=== PATIENT | female | born 1980 | race Caucasian/White ===

== ENCOUNTER 2017-11-19 02:06 | Inpatient (IN) | payer BC ==
[2017-11-19] MEDS ORDERED: Penicillin G Potassium 5 MILLUNITS in Sodium Chloride 0.9% 100 ML IV STA (02:45)
[2017-11-19] MEDS ORDERED: Lactated Ringers 1,000 ML IV SCH ×2 (02:45→08:15)
[2017-11-19] MEDS: Penicillin G Potassium 2.5 MILLUNITS in Sodium Chloride 0.9% 100 ML IV SCH ×4 (06:54→23:01)
[2017-11-19] MEDS ORDERED: Lidocaine 1% 30 ML SDV INJECT PRN (08:01)
[2017-11-19] MEDS ORDERED: Misoprostol 400 MCG (4 X 100 MCG TAB) RECTAL PRN (08:01)
[2017-11-19] MEDS ORDERED: Sodium Chloride 0.9% 10 ML Syringe FLUSH PRN (08:01)
[2017-11-19] MEDS ORDERED: Methylergonovine 0.2 MG/1 ML Amp IM PRN (08:01)
[2017-11-19] MEDS ORDERED: Lactated Ringers 500 ML IV ONE (08:01)
[2017-11-19] MEDS ORDERED: Carboprost Tromethamine 250 MCG/1 ML Amp IM PRN (08:01)
[2017-11-19] MEDS ORDERED: fentaNYL 100 MCG/2 ML SDV IVPUSH PRN (08:01)
[2017-11-19] MEDS ORDERED: Ondansetron 4 MG/2 ML SDV IV PRN (08:01)
[2017-11-19] MEDS ORDERED: Nalbuphine 20 MG/1 ML Amp IVPUSH PRN (08:01)
[2017-11-19] MEDS ORDERED: hydrOXYzine HCl 25 MG Tab PO PRN (08:04)
--- NOTE | 2017-11-19 08:24 | PCM.LDHP ---
L&D History of Present Illness - General Date of Service: 11/19/17 Admit Problem/Dx: Patient Status Order with Admit Dx/Problem 11/19/17 08:01 Patient Status [ADT] Routine Admission Diagnosis/Problem Admission Diagnosis/Problem Active labor Source of Information: Patient History Limitations: Reports: No Limitations - History of Present Illness Introduction:: 37-year-old at 38w3d presented to L&D last night with increased contractions since mid-afternoon. She has had increased [place] over the past couple days but her contractions became more regular yesterday. She presented to L&D around 0200 this morning with contractions 3-5 minutes apart. Penicillin was started for GBS prophylaxis and she was observed initially. Cervix changed from 3 to 4+ cm so the decision was made to proceed with AROM after the 2nd dose of PCN was given. Moderate meconium was noted. Baby has been active. Patient has also noted a good amount of bloody show. No new headaches or vision changes. - Related Data Allergies/Adverse Reactions: Allergies Allergy/AdvReac Type Severity Reaction Status Date / Time No Known Allergies Allergy Verified 11/19/17 03:05 Home Medications: Home Meds Docusate Sodium [Colace] 100 mg PO BID 10/31/17 [History] Famotidine [Pepcid] 10 mg PO DAILY 10/31/17 [History] Pnv No.122/Iron/Folic Acid [ Multi Tablet] 1 tab PO DAILY 10/31/17 [ History] Past Medical History Gastrointestinal History: Reports: None HOUSE PARENT History: Reports: , Spontaneous - Infectious Disease History Infectious Disease History: Reports: Chicken Pox - Past Surgical History HEENT Surgical History: Reports: Oral Surgery, Other (See Below) Other HEENT Surgeries/Procedures: facial cosmetic surgery GI Surgical History: Reports: Appendectomy Social & Family History - Family History Family Medical History: Noncontributory - Tobacco Use Smoking Status *Q: Never Smoker Second Hand Smoke Exposure: No - Caffeine Use Caffeine Use: Reports: None - Recreational Drug Use Recreational Drug Use: No H&P Review of Systems - Review of Systems: Review Of Systems: See Below General: Reports: No Symptoms HEENT: Reports: No Symptoms Pulmonary: Reports: No Symptoms Cardiovascular: Reports: No Symptoms Genitourinary: Reports: No Symptoms Musculoskeletal: Reports: No Symptoms Skin: Reports: No Symptoms L&D Exam - Exam Exam: See Below - Vital Signs Vital Signs: Last Vital Signs Temp 36.7 C 11/19/17 04:00 Pulse 82 11/19/17 04:00 Resp 16 11/19/17 04:00 BP 95/63 11/19/17 04:00 Pulse Ox Weight: 65.317 kg - OB Specific Contraction Duration (sec): 80 Contraction Frequency (min): 4-4.5 Contraction Intensity: Mild to Moderate Movement: Active Heart Tones: Present Heart Tones per Min: 140 Heart Rate (FHR) Variability: Moderate (6-25 bmp) Presentation: Vertex - Fisher Score Fisher Score Cervix Position: Midposition Fisher Score Consistency: Soft Fisher Score Effacement: >80% Fisher Score Dilation: 3-4 cm Fisher Score 's Station: -1 ,0 Fisher Score Total: 10 - Exam General: Alert, Oriented Lungs: Clear to Auscultation, Normal Respiratory Effort Cardiovascular: Regular Rate, Regular Rhythm Genitourinary: Normal external exam Extremities: No Pedal Edema Skin: Warm, Dry, Intact - Patient Data Lab Results Last 24 hrs: Laboratory Results - last 24 hr 11/19/17 Range/Units 02:25 WBC 13.7 H (5.0-10.0) 10^3/uL RBC 3.82 L (4.2-5.4) 10^6/uL Hgb 12.2 (12.0-16.0) g/dL Hct 35.5 L (37.0-47.0) % MCV 92.9 (80-100) fL MCH 31.9 (27.0-34.0) pg MCHC 34.4 (33.0-35.0) g/dL Plt Count 160 (150-450) 10^3/uL Result Diagrams: 11/19/17 02:25 - Problem List (1) GBS (group B Streptococcus carrier), +RV culture, currently SNOMED Code(s): 6335513024516, 6976200258830 ICD Code: O99.820 - STREPTOCOCCUS B CARRIER STATE COMPLICATING Status: Acute Current Visit: Yes (2) care in third trimester SNOMED Code(s): 881809702, 66422707, 216133645, 801777792 ICD Code: Z34.93 - ENCNTR FOR SUPRVSN OF NORMAL PREG, UNSP, THIRD TRIMESTER Status: Acute Current Visit: Yes (3) AMA (advanced maternal age) multigravida 35+ SNOMED Code(s): 794278517 ICD Code: O09.529 - SUPERVISION OF ELDERLY MULTIGRAVIDA, UNSPECIFIED TRIMESTER Status: Acute Current Visit: Yes (4) Family history of genetic disease SNOMED Code(s): 906473741 ICD Code: Z84.89 - FAMILY HISTORY OF OTHER SPECIFIED CONDITIONS Status: Acute Current Visit: Yes Problem List Initiated/Reviewed/Updated: Yes Orders Last 24hrs: Active Orders 24 hr Category Date Time Status Patient Status [ADT] Routine ADT 11/19/17 08:01 Active Communication Order [RC] ASDIRECTED Care 11/19/17 08:01 Active Heart Tones [RC] PER UNIT ROUTINE Care 11/19/17 08:01 Active Notify Provider Vital Signs OB [RC] ASDIRECTED Care 11/19/17 08:01 Active Notify Provider [RC] PRN Care 11/19/17 08:01 Active Pump Management, Intrathecal [RC] ASDIRECTED Care 11/19/17 08:01 Active Up ad Norma [RC] ASDIRECTED Care 11/19/17 08:01 Active Vital Signs [RC] PER UNIT ROUTINE Care 11/19/17 08:01 Active Clear Liquid Diet [DIET] Diet 11/19/17 Lunch Active Acetaminophen [Tylenol] Med 11/19/17 08:01 Active 650 mg PO Q4H PRN Carboprost Tromethamine [Hemabate DS] Med 11/19/17 08:01 Active 250 mcg IM ASDIRECTED PRN Lactated Ringers [Ringers, Lactated] 1,000 ml Med 11/19/17 02:45 Active IV ASDIRECTED Lactated Ringers [Ringers, Lactated] 1,000 ml Med 11/19/17 08:15 Active IV ASDIRECTED Lactated Ringers [Ringers, Lactated] 500 ml Med 11/19/17 08:01 Active IV .BOLUS Lidocaine 1% [Xylocaine-MPF 1%] Med 11/19/17 08:01 Active 10 ml INJECT ASDIRECTED PRN Methylergonovine [Methergine] Med 11/19/17 08:01 Active 0.2 mg IM ASDIRECTED PRN Misoprostol [Cytotec] Med 11/19/17 08:01 Active 800 mcg RECTAL ASDIRECTED PRN Nalbuphine [Nubain] Med 11/19/17 08:01 Ordered 10 mg IVPUSH Q3H PRN Ondansetron [Zofran] Med 11/19/17 08:01 Ordered 4 mg IV Q4H PRN Penicillin G Potassium [Pfizerpen] 2.5 millunits Med 11/19/17 07:00 Active Sodium Chloride 0.9% [Normal Saline] 100 ml IV Q4H Sodium Chloride 0.9% [Saline Flush] Med 11/19/17 08:01 Active 10 ml FLUSH ASDIRECTED PRN fentaNYL [Sublimaze] Med 11/19/17 08:01 Ordered 50 mcg IVPUSH Q1H PRN hydrOXYzine HCl [Atarax] Med 11/19/17 08:04 Ordered 25 mg PO Q6H PRN Saline Lock Insert [OM.PC] Routine Oth 11/19/17 08:01 Ordered Resuscitation Status Routine Resus Stat 11/19/17 08:01 Ordered Medication Orders Acetaminophen (Tylenol) 650 mg PO Q4H PRN PRN Reason: Pain (Mild 1-3) and fever Carboprost Tromethamine (Hemabate Ds) 250 mcg IM ASDIRECTED PRN PRN Reason: HEMORRHAGE Fentanyl (Sublimaze) 50 mcg IVPUSH Q1H PRN PRN Reason: Pain (moderate 4-6) Hydroxyzine HCl (Atarax) 25 mg PO Q6H PRN PRN Reason: Pain Lactated Ringer's (Ringers, Lactated) 1,000 mls @ 125 mls/hr IV ASDIRECTED [facility] Last Admin: 11/19/17 02:22 Dose: 125 mls/hr Penicillin G Potassium 2.5 (millunits/ Sodium Chloride) 100 mls @ 200 mls/hr IV Q4H [facility] Last Admin: 11/19/17 06:54 Dose: 200 mls/hr Lactated Ringer's (Ringers, Lactated) 500 mls @ 999 mls/hr IV .BOLUS ONE Stop: 11/19/17 08:31 Lactated Ringer's (Ringers, Lactated) 1,000 mls @ 125 mls/hr IV ASDIRECTED [facility] Lidocaine HCl (Xylocaine-Mpf 1%) 10 ml INJECT ASDIRECTED PRN PRN Reason: Perineal Repair Methylergonovine Maleate (Methergine) 0.2 mg IM ASDIRECTED PRN PRN Reason: Hemorrhage Misoprostol (Cytotec) 800 mcg RECTAL ASDIRECTED PRN PRN Reason: Hemorrhage Nalbuphine HCl (Nubain) 10 mg IVPUSH Q3H PRN PRN Reason: Pain (moderate 4-6) Ondansetron HCl (Zofran) 4 mg IV Q4H PRN PRN Reason: Nausea/Vomiting Sodium Chloride (Saline Flush) 10 ml FLUSH ASDIRECTED PRN PRN Reason: Keep Vein Open Assessment/Plan Comment:: 1. Initiate routine intrapartum cares 2. Continue PCN for GBS positive status 3. Expectant management. Anticipate Estelita Landon MD
[2017-11-19] MEDS: Oxytocin/Normal Saline 30 UNIT/500 ML BAG IV SCH ×2 (11:17→12:30)
[2017-11-19] MEDS ORDERED: Oxytocin 10 Units/1 ML SDV IM PRN (11:26)
[2017-11-19] MEDS ORDERED: Simethicone 80 MG Tab.Chew PO PRN (11:26)
[2017-11-19] MEDS ORDERED: Benzocaine/Menthol 20%-0.5% Spray 56 GM Canister TOP PRN (11:26)
--- NOTE | 2017-11-19 11:33 | PCM.DEL ---
<Ena Westbrook - Last Filed: 11/19/17 12:10> L & D Note - General Info Date of Service: 11/19/17 Mother's Due Date: 11/30/17 - Delivery Note Labor: Spontaneous Delivery Outcome: Livebirth Delivery Method: Spontaneous Vaginal Delivery-Single Delivery Mode: Spontaneous Presentation: Vertex Anesthesia Type: None Amniotic Fluid Description: Meconium Stained Episiotomy Type: None Laceration: None Placenta: Intact, Spontaneous, Clot (two large clots after placenta delivery ) Cord: 3 Vessels Resuscitation Needed: No [place]: Bulb Syringe Score 1 min: 8 Score 5 min: 9 Second Stage Interventions: Reports: Pushing Effectively, Pushing, McRobert's Position Delivery Comments (Free Text/Narrative):: 35-year-old now [id number] presented to L&D at 38w3d. She presented to L&D around 0200 this morning with contractions 3-5 minutes apart. Penicillin was started for GBS prophylaxis. Cervix changed from 3 to 4+ cm. After 2nd dose of Penicillin, AROM was performed. Moderate meconium was noted. She progressed to 100% effaced and completely dilated at 1040. Patient pushed four times and delivered a viable male infant at 1049 with Apgars of 8 and 9 at 1 and 5 minutes respectively. Baby was urinating and covered in moderate amount of meconium at delivery. Baby was placed on mother's stomach while bulb suction was being performed. When the cord stopped pulsing, it was clamped x2 and cut by patient's / Father of baby. Cord blood was collected. Perineum was inspected and appeared to be intact. The placenta delivered at 1117, immediately followed by two large blood clots. Placenta was inspected and appeared to be intact. No obvious abnormalities were observed. Perineum was again inspected and was intact. Uterus was noted to be firm. Bleeding was noted to be appropriate. Patient tolerated the procedure well, and there were no immediate complications. - Patient Data Vitals - Most Recent: Last Vital Signs Temp 98.1 F 11/19/17 04:00 Pulse 82 11/19/17 07:00 Resp 16 11/19/17 07:00 BP 123/66 11/19/17 07:00 Pulse Ox Weight - Most Recent: 65.317 kg I&O - Last 24 Hours: Intake & Output 11/18/17 11/19/17 11/19/17 22:59 06:59 14:59 Intake Total 100 Balance 100 Lab Results Last 24 Hours: Laboratory Results - last 24 hr 11/19/17 Range/Units 02:25 WBC 13.7 H (5.0-10.0) 10^3/uL RBC 3.82 L (4.2-5.4) 10^6/uL Hgb 12.2 (12.0-16.0) g/dL Hct 35.5 L (37.0-47.0) % MCV 92.9 (80-100) fL MCH 31.9 (27.0-34.0) pg MCHC 34.4 (33.0-35.0) g/dL Plt Count 160 (150-450) 10^3/uL Med Orders - Current: Current Medications Acetaminophen (Tylenol) 650 mg PO Q4H PRN PRN Reason: Pain (Mild 1-3) and fever Benzocaine/Menthol (Dermoplast Pain Relief [place]) 0 gm TOP Q4H PRN PRN Reason: Perineal comfort measures Carboprost Tromethamine (Hemabate Ds) 250 mcg IM ASDIRECTED PRN PRN Reason: HEMORRHAGE Docusate Sodium (Colace) 100 mg PO BID PRN PRN Reason: Constipation Hydroxyzine HCl (Atarax) 25 mg PO Q6H PRN PRN Reason: Pain Lactated Ringer's (Ringers, Lactated) 1,000 mls @ 125 mls/hr IV ASDIRECTED [facility] Last Admin: 11/19/17 02:22 Dose: 125 mls/hr Penicillin G Potassium 2.5 (millunits/ Sodium Chloride) 100 mls @ 200 mls/hr IV Q4H [facility] Last Admin: 11/19/17 06:54 Dose: 200 mls/hr Ibuprofen (Motrin) 800 mg PO Q8H PRN PRN Reason: Mild Pain or Fever Methylergonovine Maleate (Methergine) 0.2 mg IM ASDIRECTED PRN PRN Reason: Hemorrhage Misoprostol (Cytotec) 800 mcg RECTAL ASDIRECTED PRN PRN Reason: Hemorrhage Ondansetron HCl (Zofran) 4 mg IV Q4H PRN PRN Reason: Nausea/Vomiting Oxytocin (Pitocin) 10 unit IM ONETIME PRN PRN Reason: Bleeding Prenat Multivit/[place]/Iron/Folic Ac ( Plus Iron) 1 each PO DAILY [facility] [place] Simethicone (Simethicone) 80 mg PO Q4H PRN PRN Reason: Gas Sodium Chloride (Saline Flush) 10 ml FLUSH ASDIRECTED PRN PRN Reason: Keep Vein Open Discontinued Medications Fentanyl (Sublimaze) 50 mcg IVPUSH Q1H PRN PRN Reason: Pain (moderate 4-6) Penicillin G Potassium 5 (millunits/ Sodium Chloride) 100 mls @ 200 mls/hr IV ONETIME STA Stop: 11/19/17 03:14 Last Admin: 11/19/17 03:07 Dose: 200 mls/hr Lactated Ringer's (Ringers, Lactated) 500 mls @ 999 mls/hr IV .BOLUS ONE Stop: 11/19/17 08:31 Lactated Ringer's (Ringers, Lactated) 1,000 mls @ 125 mls/hr IV ASDIRECTED [facility] Lidocaine HCl (Xylocaine-Mpf 1%) 10 ml INJECT ASDIRECTED PRN PRN Reason: Perineal Repair Nalbuphine HCl (Nubain) 10 mg IVPUSH Q3H PRN PRN Reason: Pain (moderate 4-6) - Problem List & Annotations (1) Active labour SNOMED Code(s): 57932775 Code(s): EWZ3856 - Status: Acute Current Visit: Yes - Problem List Review Problem List Initiated/Reviewed/Updated: Yes - Assessment Assessment:: 37-year-old Spontaneous vaginal delivery of viable male at 38w3d gestational age. No lacerations or tears of perineal body or vaginal canal. Intact placenta delivered with three cord vessel. - Plan Plan:: 1. Initiate routine orders 2. Plans to breastfeed 3. Anticipate discharge 11/20/17 <Estelita Landon - Last Filed: 11/19/17 15:18> - Patient Data Vitals - Most Recent: Last Vital Signs Temp 36.8 C 11/19/17 09:15 Pulse 93 11/19/17 09:45 Resp 16 11/19/17 09:45 BP 112/76 11/19/17 09:45 Pulse Ox I&O - Last 24 Hours: Intake & Output 11/19/17 11/19/17 11/19/17 06:59 14:59 22:59 Intake Total 100 Balance 100 Lab Results Last 24 Hours: Laboratory Results - last 24 hr 11/19/17 Range/Units 02:25 WBC 13.7 H (5.0-10.0) 10^3/uL RBC 3.82 L (4.2-5.4) 10^6/uL Hgb 12.2 (12.0-16.0) g/dL Hct 35.5 L (37.0-47.0) % MCV 92.9 (80-100) fL MCH 31.9 (27.0-34.0) pg MCHC 34.4 (33.0-35.0) g/dL Plt Count 160 (150-450) 10^3/uL Med Orders - Current: Current Medications Acetaminophen (Tylenol) 650 mg PO Q4H PRN PRN Reason: Pain (Mild 1-3) and fever Benzocaine/Menthol (Dermoplast Pain Relief [place]) 0 gm TOP Q4H PRN PRN Reason: Perineal comfort measures Carboprost Tromethamine (Hemabate Ds) 250 mcg IM ASDIRECTED PRN PRN Reason: HEMORRHAGE Docusate Sodium (Colace) 100 mg PO BID PRN PRN Reason: Constipation Hydroxyzine HCl (Atarax) 25 mg PO Q6H PRN PRN Reason: Pain Lactated Ringer's (Ringers, Lactated) 1,000 mls @ 125 mls/hr IV ASDIRECTED [facility] Last Admin: 11/19/17 02:22 Dose: 125 mls/hr Penicillin G Potassium 2.5 (millunits/ Sodium Chloride) 100 mls @ 200 mls/hr IV Q4H [facility] Last Admin: 11/19/17 11:00 Dose: Not Given Oxytocin/Sodium Chloride (Pitocin In Ns 30 Unit/500 Ml) 30 unit in 500 mls @ 500 mls/hr IV TITRATE [facility]; 500 MUNITS/MIN PRN Reason: Protocol Last Admin: 11/19/17 11:17 Dose: 999 munits/min, 999 mls/hr Ibuprofen (Motrin) 800 mg PO Q8H PRN PRN Reason: Mild Pain or Fever Last Admin: 11/19/17 12:44 Dose: 800 mg Methylergonovine Maleate (Methergine) 0.2 mg IM ASDIRECTED PRN PRN Reason: Hemorrhage Misoprostol (Cytotec) 800 mcg RECTAL ASDIRECTED PRN PRN Reason: Hemorrhage Ondansetron HCl (Zofran) 4 mg IV Q4H PRN PRN Reason: Nausea/Vomiting Oxytocin (Pitocin) 10 unit IM ONETIME PRN PRN Reason: Bleeding Prenat Multivit/[place]/Iron/Folic Ac ( Plus Iron) 1 each PO DAILY [facility] Simethicone (Simethicone) 80 mg PO Q4H PRN PRN Reason: Gas Sodium Chloride (Saline Flush) 10 ml FLUSH ASDIRECTED PRN PRN Reason: Keep Vein Open Discontinued Medications Fentanyl (Sublimaze) 50 mcg IVPUSH Q1H PRN PRN Reason: Pain (moderate 4-6) Penicillin G Potassium 5 (millunits/ Sodium Chloride) 100 mls @ 200 mls/hr IV ONETIME STA Stop: 11/19/17 03:14 Last Admin: 11/19/17 03:07 Dose: 200 mls/hr Lactated Ringer's (Ringers, Lactated) 500 mls @ 999 mls/hr IV .BOLUS ONE Stop: 11/19/17 08:31 Lactated Ringer's (Ringers, Lactated) 1,000 mls @ 125 mls/hr IV ASDIRECTED [facility] Lidocaine HCl (Xylocaine-Mpf 1%) 10 ml INJECT ASDIRECTED PRN PRN Reason: Perineal Repair Nalbuphine HCl (Nubain) 10 mg IVPUSH Q3H PRN PRN Reason: Pain (moderate 4-6) - Problem List & Annotations (1) GBS (group B Streptococcus carrier), +RV culture, currently SNOMED Code(s): 3901565604862, 6934057095729 Code(s): O99.820 - STREPTOCOCCUS B CARRIER STATE COMPLICATING Status: Acute Current Visit: Yes (2) care in third trimester SNOMED Code(s): 110912735, 28233506, 133423919, 213869785 Code(s): Z34.93 - ENCNTR FOR SUPRVSN OF NORMAL PREG, UNSP, THIRD TRIMESTER Status: Acute Current Visit: Yes (3) AMA (advanced maternal age) multigravida 35+ SNOMED Code(s): 298820047 Code(s): O09.529 - SUPERVISION OF ELDERLY MULTIGRAVIDA, UNSPECIFIED TRIMESTER Status: Acute Current Visit: Yes (4) Family history of genetic disease SNOMED Code(s): 715328441 Code(s): Z84.89 - FAMILY HISTORY OF OTHER SPECIFIED CONDITIONS Status: Acute Current Visit: Yes - My Orders Last 24 Hours: My Active Orders 11/19/17 02:45 Lactated Ringers [Ringers, Lactated] 1,000 ml IV ASDIRECTED 11/19/17 07:00 Penicillin G Potassium [Pfizerpen] 2.5 millunits Sodium Chloride 0.9% [Normal Saline] 100 ml IV Q4H 11/19/17 08:01 Patient Status [ADT] Routine Heart Tones [RC] PER UNIT ROUTINE Notify Provider Vital Signs OB [RC] ASDIRECTED Pump Management, Intrathecal [RC] ASDIRECTED Up ad Norma [RC] ASDIRECTED Acetaminophen [Tylenol] 650 mg PO Q4H PRN Carboprost Tromethamine [Hemabate DS] 250 mcg IM ASDIRECTED PRN Methylergonovine [Methergine] 0.2 mg IM ASDIRECTED PRN Misoprostol [Cytotec] 800 mcg RECTAL ASDIRECTED PRN Ondansetron [Zofran] 4 mg IV Q4H PRN Sodium Chloride 0.9% [Saline Flush] 10 ml FLUSH ASDIRECTED PRN Saline Lock Insert [OM.PC] Routine Resuscitation Status Routine 11/19/17 08:04 hydrOXYzine HCl [Atarax] 25 mg PO Q6H PRN 11/19/17 11:26 Vital Signs [RC] PFP Benzocaine/Menthol [Dermoplast Pain Relief [place]] See Dose Instructions TOP Q4H PRN Docusate Sodium [Colace] 100 mg PO BID PRN Ibuprofen [Motrin] 800 mg PO Q8H PRN Oxytocin [Pitocin] 10 unit IM ONETIME PRN Simethicone 80 mg PO Q4H PRN Assess Lochia [WOMSER] Per Unit Routine Assess Uterine Involution [WOMSER] Per Unit Routine Breast Pump [WOMSER] Per Unit Routine Ice Therapy [OM.PC] Per Unit Routine Perineal Care [OM.PC] Per Unit Routine Saline Lock Insert [OM.PC] Urgent Sitz Bath [OM.PC] Per Unit Routine 11/19/17 Lunch Regular Diet [DIET] 11/20/17 09:00 Vit with Ca/FA/Iron [ Plus Iron] 1 each PO DAILY - Plan Plan:: Agree with student assessment and plan. I was present for the entire delivery. Procedure was reviewed by me, and plan was discussed with me. Dr. Currie likely to resume care tomorrow. Estelita Landon MD
[2017-11-19] MEDS: Ibuprofen 800 MG Tab PO PRN ×2 (12:44→21:17)
[2017-11-19] MEDS: Acetaminophen 325 MG Tab PO PRN (15:37)
[2017-11-19] MEDS: Docusate Sodium 100 MG Cap PO PRN (21:17)
[2017-11-20] MEDS: Acetaminophen 325 MG Tab PO PRN ×3 (03:00→17:06)
[2017-11-20] MEDS: Penicillin G Potassium 2.5 MILLUNITS in Sodium Chloride 0.9% 100 ML IV SCH (03:24)
[2017-11-20] MEDS: Ibuprofen 800 MG Tab PO PRN ×2 (05:07→17:05)
--- NOTE | 2017-11-20 08:56 | PCM.PNPP ---
- General Info Date of Service: 11/20/17 Admission Dx/Problem (Free Text): Labor, at 38w 3d Functional Status: Reports: Pain Controlled, Tolerating Diet, Ambulating, Urinating - Review of Systems General: Reports: No Symptoms HEENT: Reports: No Symptoms Pulmonary: Reports: No Symptoms Cardiovascular: Reports: No Symptoms Gastrointestinal: Reports: No Symptoms Genitourinary: Reports: No Symptoms Musculoskeletal: Reports: No Symptoms Skin: Reports: No Symptoms Neurological: Reports: No Symptoms Psychiatric: Reports: No Symptoms - General Info Date of Service: 11/20/17 - Patient Data Vital Signs - Most Recent: Last Vital Signs Temp 97.9 F 11/19/17 20:00 Pulse 81 11/19/17 20:00 Resp 16 11/19/17 20:00 BP 101/54 L 11/19/17 20:00 Pulse Ox Weight - Most Recent: 144 lb Med Orders - Current: Current Medications Acetaminophen (Tylenol) 650 mg PO Q4H PRN PRN Reason: Pain (Mild 1-3) and fever Last Admin: 11/20/17 03:00 Dose: 650 mg Benzocaine/Menthol (Dermoplast Pain Relief [place]) 0 gm TOP Q4H PRN PRN Reason: Perineal comfort measures Last Admin: 11/19/17 15:36 Dose: 1 spray Carboprost Tromethamine (Hemabate Ds) 250 mcg IM ASDIRECTED PRN PRN Reason: HEMORRHAGE Docusate Sodium (Colace) 100 mg PO BID PRN PRN Reason: Constipation Last Admin: 11/19/17 21:17 Dose: 100 mg Lactated Ringer's (Ringers, Lactated) 1,000 mls @ 125 mls/hr IV ASDIRECTED [facility] Last Admin: 11/19/17 02:22 Dose: 125 mls/hr Ibuprofen (Motrin) 800 mg PO Q8H PRN PRN Reason: Mild Pain or Fever Last Admin: 11/20/17 05:07 Dose: 800 mg Methylergonovine Maleate (Methergine) 0.2 mg IM ASDIRECTED PRN PRN Reason: Hemorrhage Misoprostol (Cytotec) 800 mcg RECTAL ASDIRECTED PRN PRN Reason: Hemorrhage Ondansetron HCl (Zofran) 4 mg IV Q4H PRN PRN Reason: Nausea/Vomiting Prenat Multivit/[place]/Iron/Folic Ac ( Plus Iron) 1 each PO DAILY [facility] Simethicone (Simethicone) 80 mg PO Q4H PRN PRN Reason: Gas Sodium Chloride (Saline Flush) 10 ml FLUSH ASDIRECTED PRN PRN Reason: Keep Vein Open Discontinued Medications Fentanyl (Sublimaze) 50 mcg IVPUSH Q1H PRN PRN Reason: Pain (moderate 4-6) Hydroxyzine HCl (Atarax) 25 mg PO Q6H PRN PRN Reason: Pain Penicillin G Potassium 5 (millunits/ Sodium Chloride) 100 mls @ 200 mls/hr IV ONETIME STA Stop: 11/19/17 03:14 Last Admin: 11/19/17 03:07 Dose: 200 mls/hr Penicillin G Potassium 2.5 (millunits/ Sodium Chloride) 100 mls @ 200 mls/hr IV Q4H [facility] Last Admin: 11/20/17 03:24 Dose: Not Given Lactated Ringer's (Ringers, Lactated) 500 mls @ 999 mls/hr IV .BOLUS ONE Stop: 11/19/17 08:31 Last Admin: 11/19/17 21:52 Dose: Not Given Lactated Ringer's (Ringers, Lactated) 1,000 mls @ 125 mls/hr IV ASDIRECTED [facility] Oxytocin/Sodium Chloride (Pitocin In Ns 30 Unit/500 Ml) 30 unit in 500 mls @ 500 mls/hr IV TITRATE [facility]; 500 MUNITS/MIN PRN Reason: Protocol Last Titration: 11/19/17 15:30 Dose: 0 munits/min, 0 mls/hr Lidocaine HCl (Xylocaine-Mpf 1%) 10 ml INJECT ASDIRECTED PRN PRN Reason: Perineal Repair Nalbuphine HCl (Nubain) 10 mg IVPUSH Q3H PRN PRN Reason: Pain (moderate 4-6) Oxytocin (Pitocin) 10 unit IM ONETIME PRN PRN Reason: Bleeding - Interaction Disposition, : [place] in Room with Family Infant Interaction: Unable to Hold at this Time ( chaning baby diaper, Patient eating breakfast ) Infant Feeding: Breastfed ; Nursed Well, Continues to Breastfeed Support Person: - Recovery Exam Fundal Tone: Firm Fundal Level: 2 Fingerbreadths Below Umbilicus Fundal Placement: Midline Lochia Amount: Small Lochia Color: Rubra/Red Perineum Description: Intact, Minimal Bruising/Swelling Episiotomy/Laceration: None Bladder Status: Nonpalpable, Voiding - Exam General: Alert, Oriented HEENT: Pupils Equal, EOMI, Mucous Membr. Moist/[place] Neck: Supple Lungs: Clear to Auscultation, Normal Respiratory Effort. No: Crackles, Rhonchi Cardiovascular: Regular Rate, Regular Rhythm, No Murmurs GI/Abdominal Exam: Normal Bowel Sounds, Soft, Non-Tender Extremities: Normal Inspection, Normal Range of Motion, Non-Tender, No Pedal Edema Skin: Warm, Dry, Intact Neurological: No New Focal Deficit Psy/Mental Status: Alert, Normal Affect, Normal Mood - Problem List & Annotations (1) Normal labor and delivery SNOMED Code(s): 22729695 Code(s): O80 - ENCOUNTER FOR FULL-TERM UNCOMPLICATED DELIVERY Status: Acute Current Visit: Yes Onset Date: ~11/19/17 - Problem List Review Problem List Initiated/Reviewed/Updated: Yes - Assessment Assessment:: Day 1 post-. Spontaneous vaginal delivery of viable male at 38w3d gestational age. No lacerations or tears of perineal body or vaginal canal. Mother doing well, , no concerns. - Plan Plan:: 1. Continue routine orders 2. well 3. Anticipate discharge 11/20/17 I was present for the entire delivery. Procedure was reviewed by me, and plan was discussed with me. Estelita Landon MD
[2017-11-20] MEDS ORDERED: Prenatal Multivitamin with Calcium/Folic Acid/Iron Tab PO SCH (09:00)
[2017-11-20] MEDS: Docusate Sodium 100 MG Cap PO PRN (09:18)
--- NOTE | 2017-11-20 18:55 | PCM.DCSUM1 ---
Discharge Summary - Discharge Data Discharge Date: 11/20/17 (DISCHARGE SUMMARY) Discharge Disposition: Home, Self-Care 01 Condition: Good - Discharge Plan Home Medications: Home Meds Docusate Sodium [Colace] 100 mg PO BID 10/31/17 [History] Famotidine [Pepcid] 10 mg PO DAILY 10/31/17 [History] Pnv No.122/Iron/Folic Acid [ Multi Tablet] 1 tab PO DAILY 10/31/17 [ History] - Discharge Summary/Plan Comment DC Time >30 min.: No - Patient Data Vitals - Most Recent: Last Vital Signs Temp 97.9 F 11/19/17 20:00 Pulse 81 11/19/17 20:00 Resp 16 11/19/17 20:00 BP 101/54 L 11/19/17 20:00 Pulse Ox Weight - Most Recent: 144 lb Med Orders - Current: Current Medications Acetaminophen (Tylenol) 650 mg PO Q4H PRN PRN Reason: Pain (Mild 1-3) and fever Last Admin: 11/20/17 17:06 Dose: 650 mg Benzocaine/Menthol (Dermoplast Pain Relief [place]) 0 gm TOP Q4H PRN PRN Reason: Perineal comfort measures Last Admin: 11/19/17 15:36 Dose: 1 spray Carboprost Tromethamine (Hemabate Ds) 250 mcg IM ASDIRECTED PRN PRN Reason: HEMORRHAGE Docusate Sodium (Colace) 100 mg PO BID PRN PRN Reason: Constipation Last Admin: 11/20/17 09:18 Dose: 100 mg Lactated Ringer's (Ringers, Lactated) 1,000 mls @ 125 mls/hr IV ASDIRECTED PANCHO Last Admin: 11/19/17 02:22 Dose: 125 mls/hr Ibuprofen (Motrin) 800 mg PO Q8H PRN PRN Reason: Mild Pain or Fever Last Admin: 11/20/17 17:05 Dose: 800 mg Methylergonovine Maleate (Methergine) 0.2 mg IM ASDIRECTED PRN PRN Reason: Hemorrhage Misoprostol (Cytotec) 800 mcg RECTAL ASDIRECTED PRN PRN Reason: Hemorrhage Ondansetron HCl (Zofran) 4 mg IV Q4H PRN PRN Reason: Nausea/Vomiting Prenat Multivit/News Librarian/Iron/Folic Ac ( Plus Iron) 1 each PO DAILY PANCHO Last Admin: 11/20/17 09:18 Dose: 1 each Simethicone (Simethicone) 80 mg PO Q4H PRN PRN Reason: Gas Sodium Chloride (Saline Flush) 10 ml FLUSH ASDIRECTED PRN PRN Reason: Keep Vein Open Discontinued Medications Fentanyl (Sublimaze) 50 mcg IVPUSH Q1H PRN PRN Reason: Pain (moderate 4-6) Hydroxyzine HCl (Atarax) 25 mg PO Q6H PRN PRN Reason: Pain Penicillin G Potassium 5 (millunits/ Sodium Chloride) 100 mls @ 200 mls/hr IV ONETIME STA Stop: 11/19/17 03:14 Last Admin: 11/19/17 03:07 Dose: 200 mls/hr Penicillin G Potassium 2.5 (millunits/ Sodium Chloride) 100 mls @ 200 mls/hr IV Q4H PANCHO Last Admin: 11/20/17 03:24 Dose: Not Given Lactated Ringer's (Ringers, Lactated) 500 mls @ 999 mls/hr IV .BOLUS ONE Stop: 11/19/17 08:31 Last Admin: 11/19/17 21:52 Dose: Not Given Lactated Ringer's (Ringers, Lactated) 1,000 mls @ 125 mls/hr IV ASDIRECTED PANCHO Oxytocin/Sodium Chloride (Pitocin In Ns 30 Unit/500 Ml) 30 unit in 500 mls @ 500 mls/hr IV TITRATE PANCHO; 500 MUNITS/MIN PRN Reason: Protocol Last Titration: 11/19/17 15:30 Dose: 0 munits/min, 0 mls/hr Lidocaine HCl (Xylocaine-Mpf 1%) 10 ml INJECT ASDIRECTED PRN PRN Reason: Perineal Repair Nalbuphine HCl (Nubain) 10 mg IVPUSH Q3H PRN PRN Reason: Pain (moderate 4-6) Oxytocin (Pitocin) 10 unit IM ONETIME PRN PRN Reason: Bleeding *Q Meaningful Use (DIS) - VTE *Q VTE Criteria *Q: - Stroke *Q Stroke Criteria *Q: - AMI *Q AMI Criteria *Q:
== END 2017-11-20 19:55 | disposition home or self-care (01) | DRG 560 ==
LOC: DL.OBCHECK 02:06 → DL.OB 02:08 → OBSVTOIN 10:49 → DL.OB 10:49
PROVIDERS: ADMIT Family Medicine; ATTEND Obstetrics & Gynecology
PROC: 10E0XZZ Delivery of Products of Conception, External Approach (ICD-10-PCS; principal; 2017-11-19)
PROC: 10907ZC Drainage of Amniotic Fluid, Therapeutic from Products of Conception, Via Natural or Artificial Opening (ICD-10-PCS; 2017-11-19)
DX: O99.824 Streptococcus B carrier state complicating childbirth (principal); O77.0 Labor and delivery complicated by meconium in amniotic fluid; O72.1 Other immediate postpartum hemorrhage; Z3A.38 38 weeks gestation of pregnancy; Z37.0 Single live birth
CPT/HCPCS: 36415; 59409; 85027; A9270-GY; J2540; J2590; J7050; J7120